=== PATIENT | female | born 1965 | race Caucasian/White ===

== ENCOUNTER 2019-05-17 15:42 | Inpatient (IN) | payer MEDICAID ==
[~2019-05-17] VITALS: Ht 152.4 cm; Wt 59.4 kg
--- NOTE | 2019-05-17 15:53 | NUR ---
PT AMBULATED TO ER BED 06
[2019-05-17 15:55] VITALS: BP 173/103
--- NOTE | 2019-05-17 16:05 | NUR ---
PT C/O N/V/D SINCE YESTERDAY WITH CHILLS. PT STATES SHE IS UNABLE TO KEEP ANYTHING DOWN WITHOUT VOMITING. ALSO REPORTS HAVING EPIGASTRIC PAIN 8/10 THROBBING AT THIS TIME. VSS; PATIENT POSITIONED FOR COMFORT; HOB ELEVATED; BEDRAILS UP X1; BED DOWN. ER MD MADE AWARE OF PT STATUS. DAUGHTER IS AT BEDSIDE.
--- NOTE | 2019-05-17 16:48 | NUR ---
Dr. La is evaluating the patient at bedside.
[2019-05-17] MEDS ORDERED: NACL 0.9% 1,000 ML IV ONE (17:00)
[2019-05-17] MEDS ORDERED: KETOROLAC 15 MG/ML VIAL IVP ONE (17:00)
[2019-05-17] MEDS ORDERED: ONDANSETRON 4 MG/2 ML VIAL IVP ONE (17:00)
[2019-05-17] MEDS ORDERED: DICYCLOMINE HCL LIQUID 20 MG, ALUMINUM HYD/MAG/SIMETHICONE 30 ML, LIDOCAINE VISCOUS 2% ... PO ONE ×3 (17:00)
[2019-05-17 17:11] LABS: BASOPHILS % (AUTO) 0.3 % (0.0-2.0); EOSINOPHILS % (AUTO) 0.1 % (0.0-4.0); HEMATOCRIT 47.6 % (36-48); HEMOGLOBIN 15.6 g/dL (12.0-16.0); LYMPHOCYTES # (AUTO) 1.2 K/uL (2.5-16.5); LYMPHOCYTES % (AUTO) 7.8 % (20.5-51.1); MEAN CORPUSCULAR HEMOGLOBIN 30 pg (27-31); MEAN CORPUSCULAR HGB CONC 33 g/dL (33-37); MONOCYTES # (AUTO) 1.3 K/uL (0.8-1.0); MONOCYTES % (AUTO) 8.1 % (1.7-9.3); NEUTROPHILS # (AUTO) 12.9 K/uL (1.8-7.7); NEUTROPHILS % (AUTO) 83.7 % (42.2-75.2); PLATELET COUNT (AUTO) 130 K/uL (140-450); RED BLOOD CELL COUNT(AUTO) 5.23 MIL/uL (4.20-5.40); WHITE BLOOD COUNT (AUTO) 15.4 K/uL (4.8-10.8)
[2019-05-17 17:17] LABS: APPEARANCE,URINE CLEAR (CLEAR); BILIRUBIN,URINE NEGATIVE (NEGATIVE); BLOOD, URINE 1+ (NEGATIVE); COLOR,URINE YELLOW (YELLOW); LEUKOCYTE ESTERASE ,URINE NEGATIVE (NEGATIVE); NITRITE, URINE NEGATIVE (NEGATIVE); UGLUCOSE NEGATIVE (NEGATIVE)
[2019-05-17 17:42] LABS: RBC,URINE 0-5 /HPF (0-5)
[2019-05-17 17:43] LABS: WBC,URINE 0-5 /HPF (0-5)
[2019-05-17 17:54] LABS: ANION GAP 10.5 (8-16); CARBON DIOXIDE 31.9 mmol/L (21-32); CREATININE 0.9 mg/dL (0.6-1.3); POTASSIUM 4.4 mmol/L (3.5-5.1)
[2019-05-17 17:55] LABS: ALBUMIN 3.5 g/dL (3.4-5.0); TOTAL BILIRUBIN 1.4 mg/dL (0.0-1.0)
[2019-05-17] MEDS ORDERED: cefTRIAXone 1,000 MG VIAL ONE (18:22)
[2019-05-17] MEDS ORDERED: HYDROcodone/APAP 7.5/325 MG 1 TAB PO PRN (18:35)
[2019-05-17] MEDS ORDERED: MORPHINE SULFATE 2 MG/ML SYR IVP PRN (18:35)
[2019-05-17] MEDS ORDERED: NACL 0.9% 1,000 ML IV SCH (18:35)
[2019-05-17] MEDS ORDERED: ONDANSETRON 4 MG/2 ML VIAL IM/IVP PRN (18:35)
[2019-05-17] MEDS ORDERED: ACETAMINOPHEN 325 MG TAB PO PRN (18:35)
[2019-05-17] MEDS ORDERED: MORPHINE SULFATE 4 MG/ML SYR IVP ONE (18:40)
--- NOTE | 2019-05-17 18:42 | NUR ---
Dr. العلي evaluating patient at bedside.
--- NOTE | 2019-05-17 18:49 | NUR ---
Dr. La is re-evaluating the patient at bedside.
[2019-05-17] MEDS ORDERED: hydrALAZINE 20 MG/ML VIAL IVP SCH (18:50)
--- NOTE | 2019-05-17 18:50 | NUR ---
PT'S BP IS 189/99MMHG. DR. SÁNCHEZ NOTIFIED.
--- NOTE | 2019-05-17 18:54 | NUR ---
Dr. Platt evaluating patient at bedside.
--- NOTE | 2019-05-17 18:58 | NUR ---
DANIEL GARSIA FROM OR AT BEDSIDE TO TAKE PATIENT DIRECTLY TO SURGERY. PT WILL GO TO M/S AFTER SURGERY.
[2019-05-17] MEDS ORDERED: KETOROLAC 15 MG/ML VIAL IVP PRN (19:20)
--- NOTE | 2019-05-17 19:20 | NUR ---
Pt report given to ADY Rosado from OR. Transfer of care at this time. Pt is taking to the OR for surgery.
[2019-05-17 19:22] LABS: BARBITURATE, URINE NEGATIVE ng/ml (NEG <=200); BENZODIAZEPINE, URINE NEGATIVE ng/mL (NEG <=200); CANNABINOID, URINE NEGATIVE ng/mL (NEG <=50); COCAINE, URINE NEGATIVE ng/mL (NEG <=300); OPIATE, URINE NEGATIVE ng/mL (NEG <=2000); PHENCYCLIDINE SCREEN,URINE NEGATIVE ng/mL (NEG <=25)
--- NOTE | 2019-05-17 19:24 | NUR ---
PATIENT TAKEN TO OR.
[2019-05-17] MEDS ORDERED: LABETALOL 100 MG/20 ML VIAL ONE (19:25)
[2019-05-17] MEDS ORDERED: ROCURONIUM 50 MG/5 ML VIAL IV ONE (19:25)
[2019-05-17] MEDS ORDERED: ONDANSETRON 4 MG/2 ML VIAL ONE (19:25)
[2019-05-17] MEDS ORDERED: SUCCINYLCHOLINE CHLORIDE 200 MG/10 ML VIAL IVP ONE (19:25)
[2019-05-17] MEDS ORDERED: NEOSTIGMINE 1:1000 10 MG/10 ML VIAL ONE (19:25)
[2019-05-17] MEDS ORDERED: GLYCOPYRROLATE 0.2 MG/ML VIAL ONE (19:25)
[2019-05-17] MEDS ORDERED: DEXAMETHASONE 4 MG/ML VIAL ONE (19:25)
[2019-05-17] MEDS ORDERED: DESFLURANE 240 ML BTL INH ONE (19:25)
[2019-05-17] MEDS ORDERED: KETOROLAC 30 MG/ML VIAL ONE (19:25)
[2019-05-17] MEDS ORDERED: PROPOFOL 200 MG/20 ML VIAL IV ONE (19:25)
[2019-05-17] MEDS ORDERED: fentaNYL 0.05 MG/ML VIAL ONE (19:27)
[2019-05-17] MEDS ORDERED: HYDROmorphone PFS 2 MG/ML SYR ONE (19:27)
[2019-05-17] MEDS ORDERED: BUPIVACAINE-MPF 0.25% 30 ML VIAL INJ ONE (19:29)
[2019-05-17] MEDS ORDERED: ONDANSETRON 4 MG/2 ML VIAL IVP PRN (19:30)
[2019-05-17] MEDS ORDERED: HYDROmorphone 1 MG/ML AMP IVP PRN (19:30)
[2019-05-17 19:33] LABS: CHOL/HDL RATIO 5.2 (1-4.5); MAGNESIUM 1.7 mg/dL (1.8-2.4); PHOSPHORUS 2.8 mg/dL (2.5-4.9)
[2019-05-17 19:34] LABS: FREE T4 (FREE THYROXINE) 0.95 ng/dL (0.76-1.46); THYROID STIMULATING HORMONE 2.1 uIU/mL (0.34-3.74)
[2019-05-17] MEDS ORDERED: LABETALOL 100 MG/20 ML VIAL IVP PRN (20:35)
[2019-05-17 21:10] VITALS: BP 130/72
--- NOTE | 2019-05-17 21:10 | NUR ---
RECIEVED PT , FROM OR - S/P LAP. AP / THOMAS , FULLY AWAKE - AAOX4 , NID - 02 SAT 94% , WITH BEARABLE PAIN SHE SAID ,WITH SURICAL WOUND INTACT - NO ACTIVE BLEEDING NOTED AT THIS TIME . PER OR NOD PT HAD EPISODE OF INCREASED BP AT OR - LABETALOL GIVEN AT THE OR - FOR CLOSELY WATCH -BP WNL AT THIS TIME. TRANSFER TO BED BY 4 PEOPLE MANUALLY LIFT , KEEP PT. WARM , MAIINTAIN NPO TILL FURTHER ORDER INSTRUCTED . HOOK ON V/S MACHINE - WNL - ON SAFETY PRECAUTION PROTOCOL - CALL LIGHT WITHIN REACH - REMINDS HER THE USE OF CALL LIGHT WHEN SHE NEEDED ASSISTANCE OR HELP . PLAN OF CARE DISCUSSED - PT IS GERMAN SPEAKING BUT CAN ABLE TO UNDERSTAND SOME URUGUAYAN , RELATIVES ARE AT BEDSIDE . WILL CONT. TO MONITOR.
[2019-05-17] MEDS: DEXT 5% /NACL 0.9% 1,000 ML IV SCH (21:41)
--- NOTE | 2019-05-17 22:10 | NUR ---
MADE ROUNDS , BP 133/90 , O2 SAT 94 % , NO SIGNS OF DISTRESS NOTED AT THIS TIME - CALL LIGHT WITHIN REACH - WILL CONT. TO MONITOR.
[2019-05-18] VITALS: BP 140/90
--- NOTE | 2019-05-18 | NUR ---
MADE ROUNDS PAIN C/O OF PAIN , SHE REQUESTING NO MORPHINE OR ANY MEDICINE CONTAINS OF MORPHINE , NO TYLENOL , NO CODEINE OR ANY MEDICINE CONTAINS OF THIS INGREDIENTS. WILL REFER TO GEETHA. WILL CONT. TO MONITOR. CALL LIGHT WITHIN REACH.
--- NOTE | 2019-05-18 00:30 | NUR ---
REFERED TO GEETHA - GEETHA INFORMED ABOUT THE PT'S REQUEST ABOUT MEDICINE (NO MORPHINE , NO TYLENOL , NO CODEINE ).GEETHA WILL REVISE THE ORDER ABOUT PAIN MEDICATION.
[2019-05-18] MEDS ORDERED: KETOROLAC 15 MG/ML VIAL IVP ONE (00:40)
--- NOTE | 2019-05-18 00:43 | NUR ---
BP 145/90 . 02 SAT 95% ,CA 75 BY V/S MACHINE - TORADOL TIV GIVEN ORDERED - WILL CONT. TO MONITOPR. CALL LIGHT WITHIN REACH.
--- NOTE | 2019-05-18 02:43 | NUR ---
MADE ROUNDS , BP 140/93 , DE 74 , 02 SAT 97% - NO COMPLAIN MADE AT THIS TIME . WILL CONT. TO MONITOR.
[2019-05-18 04:00] VITALS: BP 140/90
--- NOTE | 2019-05-18 04:33 | NUR ---
MADE ROUNDS . NO SIGNS OF DISTRESS NOTED AT THIS TIME , ON O2 SAT. MONITOR 94% - SLEEPING COMFORTABLY. WILL CONT. TO MONITOR.
--- NOTE | 2019-05-18 06:00 | NUR ---
OFFER A BED TOLENTINO - PT. SAID SHE FEELS URGE TO VOID.
[2019-05-18] MEDS ORDERED: hydrALAZINE 20 MG/ML VIAL ONE (06:19)
[2019-05-18] MEDS: hydrALAZINE 20 MG/ML VIAL IVP PRN (06:29)
[2019-05-18 06:48] LABS: BASOPHILS % (AUTO) 0.2 % (0.0-2.0); HEMATOCRIT 38.9 % (36-48); HEMOGLOBIN 12.8 g/dL (12.0-16.0); LYMPHOCYTES % (AUTO) 8.6 % (20.5-51.1); MEAN CORPUSCULAR HEMOGLOBIN 30 pg (27-31); MEAN CORPUSCULAR HGB CONC 33 g/dL (33-37); MEAN CORPUSCULAR VOLUME 91.7 fL (80-94); MONOCYTES # (AUTO) 0.7 K/uL (0.8-1.0); MONOCYTES % (AUTO) 6.1 % (1.7-9.3); NEUTROPHILS # (AUTO) 9.7 K/uL (1.8-7.7); NEUTROPHILS % (AUTO) 85.1 % (42.2-75.2); PLATELET COUNT (AUTO) 118 K/uL (140-450); RED BLOOD CELL COUNT(AUTO) 4.24 MIL/uL (4.20-5.40); RED CELL DISTRIBUTION WIDTH 13.1 % (11.6-13.7); WHITE BLOOD COUNT (AUTO) 11.4 K/uL (4.8-10.8)
--- NOTE | 2019-05-18 07:17 | NUR ---
ENDORSE TO AM SHIFT . STILL NO U.O . CLEAR LIQ. TO BE STARTED .
[2019-05-18 07:27] LABS: ANION GAP 11.5 (8-16); CARBON DIOXIDE 29.8 mmol/L (21-32); CREATININE 0.8 mg/dL (0.6-1.3); POTASSIUM 4.3 mmol/L (3.5-5.1)
--- NOTE | 2019-05-18 07:30 | NUR ---
Recieved report from manager shift nurse. Pt is in bed resting. No signs of distress. Call light in reach [id number]
[2019-05-18 08:00] VITALS: BP 154/79
[2019-05-18 08:58] LABS: CHOL/HDL RATIO 4.4 (1-4.5); MAGNESIUM 1.7 mg/dL (1.8-2.4)
[2019-05-18] MEDS ORDERED: MAGNESIUM OXIDE 400 MG TAB PO SCH (09:00)
--- NOTE | 2019-05-18 09:00 | NUR ---
PATIENT HAS BEEN SCREENED AND CATEGORIZED HIGH NUTRITION RISK. PATIENT WILL BE SEEN WITHIN 1-2 DAYS OF ADMISSION. 05/19/19 05/20/[address]
[2019-05-18] MEDS: LACTOBACILLUS RHAMNOSUS GG 1 EACH CAP PO SCH (09:15)
[2019-05-18] MEDS: KETOROLAC 15 MG/ML VIAL IVP PRN ×3 (09:21→21:06)
[2019-05-18] MEDS: DEXT 5% /NACL 0.9% 1,000 ML IV SCH (09:38)
--- NOTE | 2019-05-18 10:00 | NUR ---
Pt is in bedside. No complains of pain at this time. Family by bedside. Call light in reach. [id number]
[2019-05-18 12:00] VITALS: BP 161/86
--- NOTE | 2019-05-18 13:48 | NUR ---
05/18/19 RD INITIAL ASSESSMENT COMPLETED PLEASE REFER TO NUTRITION ASSESSMENT UNDER CARE ACTIVITY FOR ESTIMATED NUTRITIONAL NEEDS. 1. CONTINUE CLEAR LIQUID DIET TOLERATED 2. IF/WHEN MEDICALLY STABLE TO BEGIN NUTRITION, ADVANCE DIET TOLERATED TO REGULAR 3. RD TO FOLLOW-UP 2-3 DAYS, HIGH RISK ANGUS DURHAM, JEWEL
--- NOTE | 2019-05-18 13:59 | NUR ---
Pt is in bedside. No complains of pain at this time. Family by bedside. Call light in reach. [id number]
[2019-05-18] MEDS ORDERED: ACETAMINOPHEN 650 MG/20.3 ML UDC PO SCH (15:00)
[2019-05-18] MEDS ORDERED: SIMETHICONE 80 MG TAB.CHEW PO SCH (15:00)
--- NOTE | 2019-05-18 15:45 | NUR ---
Pt ambulated along the hallway with assistance. Pt complained of pain but tolerated well during ambulation.
[2019-05-18 16:00] VITALS: BP 150/81
--- NOTE | 2019-05-18 18:37 | NUR ---
RECEIVED REPORT FROM RN WILL ASSUME CONTINUITY OF CARE OF PATIENT FOR NOW
--- NOTE | 2019-05-18 19:19 | NUR ---
ENDORSED PT TO PM RN PT AWAKE IN BED WITH FAMILY AT BEDSIDE. PT APPEARS STABLE AND IN NO APPARENT DISTRESS. ALL SAFETY MEASURES ARE IN PLACE WILL CONTINUE TO MONITOR
--- NOTE | 2019-05-18 19:19 | NUR ---
RECIEVED PT. AAOX4 . NID , WITH BEARABLE WILLIE AT THIS TIME SHE SAID , IV SITE INTACT AND PATENT , WITH 3 SURGICAL WOUNDS ON ADB - S/P LAP AP - NO ACTIVE BLEEDING ON SURICAL SITES NOTED AT THIS TIME. ON REG. DIET , PT . STILL NO BM , AMBULATORY , GOOD U.O . ON SAFETY PRECAUTION PROTOCOL -REMINDS HER THE USE OF CALL LIGHT WHWN SHE NEEDED HELP / ASSISTANCE , PLAN OF CARE DISCUSSED AND VERBALIZE UNDERSTANDING - CALL LIGHT WITHIN REACH . WILL CONT. TO MONITOR.
[2019-05-18 20:00] VITALS: BP 140/90
--- NOTE | 2019-05-18 22:00 | NUR ---
MADE ROUNDS . PT WITH BERABLE PAIN SHE SAID AT THIS TIME . NO SIGNS OF DISTRESS NOTED AT THIS TIME.
[2019-05-19] VITALS: BP 169/90
[2019-05-19] MEDS: hydrALAZINE 20 MG/ML VIAL IVP PRN ×3 (00:36→16:08)
--- NOTE | 2019-05-19 00:36 | NUR ---
BP RE CHECKED 160/95 - TIV APRESOLINE GIVEN. WILL CONTINUE TO MONITOR. NO FURTHER COMPLAIN MADE AT THIS TIME. CALL LIGHT WITHIN REACH.
[2019-05-19] MEDS: DEXT 5% /NACL 0.9% 1,000 ML IV SCH ×2 (00:39→15:02)
[2019-05-19 04:30] VITALS: BP 140/92
--- NOTE | 2019-05-19 04:30 | NUR ---
MADE ROUNDS . BP RE CHECKED 140/92mmhg- WILL CONTINUE TO MONITOR.
[2019-05-19 07:13] LABS: ANION GAP 11.5 (8-16); CREATININE 0.6 mg/dL (0.6-1.3); POTASSIUM 3.5 mmol/L (3.5-5.1)
--- NOTE | 2019-05-19 07:15 | NUR ---
ENDORSED TO AM SHIFT WITH LATEST BP 140/92 MMHG , WITH BEARABLE PAIN ON SURGICAL SITES.
--- NOTE | 2019-05-19 07:15 | NUR ---
RECEIVED BEDSIDE REPORT FROM PATIENT SUPPORT PARTNER NURSE, PT IS AWAKE IN BED, NO S/S OF ACUTE DISTRESS, NO C/O PAIN. ABD DRESSINGS ARE DRY AND INTACT S/P LAP APPY. IV SITE ON THE L AC 20 G, INFUSING D5NS 70 ML/HR. PT IS AMBULATORY AND ABLE TO MAKE NEEDS KNOWN. CALL LIGHT IS WITHIN REACH. WILL CONTINUE TO MONITOR.
[2019-05-19 07:41] LABS: BASOPHILS # (AUTO) 0.1 K/uL (0.00-0.22); BASOPHILS % (AUTO) 0.5 % (0.0-2.0); EOSINOPHILS % (AUTO) 0.4 % (0.0-4.0); HEMATOCRIT 36.3 % (36-48); HEMOGLOBIN 11.8 g/dL (12.0-16.0); LYMPHOCYTES # (AUTO) 1.8 K/uL (2.5-16.5); LYMPHOCYTES % (AUTO) 15.6 % (20.5-51.1); MEAN CORPUSCULAR HEMOGLOBIN 30 pg (27-31); MEAN CORPUSCULAR HGB CONC 33 g/dL (33-37); MEAN CORPUSCULAR VOLUME 91.9 fL (80-94); MONOCYTES # (AUTO) 1.2 K/uL (0.8-1.0); MONOCYTES % (AUTO) 10.9 % (1.7-9.3); NEUTROPHILS # (AUTO) 8.2 K/uL (1.8-7.7); NEUTROPHILS % (AUTO) 72.6 % (42.2-75.2); PLATELET COUNT (AUTO) 91 K/uL (140-450); RED BLOOD CELL COUNT(AUTO) 3.95 MIL/uL (4.20-5.40); WHITE BLOOD COUNT (AUTO) 11.3 K/uL (4.8-10.8)
[2019-05-19 08:00] VITALS: BP 180/93
[2019-05-19] MEDS: LACTOBACILLUS RHAMNOSUS GG 1 EACH CAP PO SCH (09:00)
--- NOTE | 2019-05-19 09:09 | NUR ---
AM MEDS ADMINISTERED, PT TOLERATED WELL. ADMINISTERED 10 MG HYDRALAZINE PRN FOR BP 180/93. WILL REASSESS BP WITHIN AN HOUR. DR GREGG IS AWARE OF PT'S ELEVATED BP. PT IS C/O A HEADACHE AND SOME ABD PAIN. WILL MEDICATE PT FOR PAIN.
[2019-05-19] MEDS: KETOROLAC 15 MG/ML VIAL IVP PRN ×2 (09:28→17:17)
--- NOTE | 2019-05-19 10:40 | NUR ---
RECHECKED PT'S BP, 181/[address] GREGG NOTIFIED.
[2019-05-19] MEDS ORDERED: METOPROLOL 25 MG TAB PO SCH (10:50)
--- NOTE | 2019-05-19 14:03 | NUR ---
BP AT THIS TIME 177/91. PT STATES THAT HER HEADACHE IS "A LITTLE BETTER". WILL CONTINUE TO MONITOR.
[2019-05-19 16:00] VITALS: BP 195/104
--- NOTE | 2019-05-19 16:10 | NUR ---
BP IS 193/104 AT THIS TIME. ADMINISTERED IV HYDRALAZINE PRN, WILL RECHECK PT'S BP WITHIN AN HOUR. WILL NOTIFY . Addendum: 05/19/19 at 1629 by Bertha Melendez RN DR GREGG AWARE OF ELEVATED BP, WILL PUT IN MED ORDERS.
[2019-05-19] MEDS ORDERED: METOPROLOL 25 MG TAB PO ONE (16:25)
--- NOTE | 2019-05-19 16:30 | NUR ---
PHARMACY CLOSED, CANNOT VERIFY THE ONE-TIME ORDER OF METOPROLOL 25 MG FOR RIGHT NOW. I CALLED THE AFTER-HOURS PHARM[facility], NO ANSWER. CALLED [facility] TO TRY TO OVERRIDE THE MED. Addendum: 05/19/19 at 1824 by Bertha Melendez RN ADMINISTERED AN OVERRIDE DOSE OF METOPROLOL 25 MG AT 17:06, WILL REASSESS BP WITHIN AN HOUR.
[2019-05-19] MEDS ORDERED: METOPROLOL 25 MG TAB ONE (17:05)
--- NOTE | 2019-05-19 17:32 | NUR ---
PT C/O A STRONG HEADACHE AGAIN. IV TORADOL ADMINISTERED. DR GREGG AWARE OF PT'S HEADACHES.
--- NOTE | 2019-05-19 17:36 | NUR ---
PT REPORTED TO ME THAT AFTER SHE GOT ROCEPHIN LAST NIGHT, SHE BECAME DIAPHORETIC, ANXIOUS, AND FELT LIKE HER THROAT WAS "CLOSING UP", ALTHOUGH SHE WAS STILL ABLE TO BREATHE. SHE ALSO SAID THAT SHE HAS BEEN HAVING A HEADACHE SINCE GETTING THE ROCEPHIN LAST NIGHT. SHE SAID THAT SHE DID NOT NOTIFY ANYONE OF THESE SYMPTOMS. I NOTIFIED DR GREGG, SHE DC'D THE ROCEPHIN AND WILL ORDER A DIFFERENT CLASS OF IV ABX.
--- NOTE | 2019-05-19 18:33 | NUR ---
PT'S BP STILL ELEVATED AT 181/98 AT THIS TIME. PT IS EATING DINNER AND VISITING WITH HER DAUGHTER AT THIS TIME. NO S/S OF ACUTE DISTRESS. REPORTS HEADACHE A LITTLE BIT BETTER. Addendum: 05/19/19 at 1858 by Bertha Melendez RN DR ZAVALETA IS AWARE OF PT'S HIGH BP. HE WENT TO TALK TO THE PATIENT ABOUT HER HEADACHES AND HER ELEVATED BP, AND HE WILL ORDER A NEW BP MEDICATION AND MUSCLE RELAXANT.
[2019-05-19] MEDS ORDERED: CYCLOBENZAPRINE 10 MG TAB PO PRN (19:00)
[2019-05-19] MEDS ORDERED: ENALAPRILAT 2.5 MG/2 ML VIAL IVP PRN (19:00)
--- NOTE | 2019-05-19 19:20 | NUR ---
ENDORSED PT TO COMPLAINT SUPERVISOR CHARGE NURSE IN STABLE CONDITION
--- NOTE | 2019-05-19 19:22 | NUR ---
ADMINISTERED THE PRN VASOTEC IVP AND PRN FLEXERIL PO, PER DR. ZAVALETA. WILL ENDORSE TO COOK HELPER VEGETABLE NURSE TO REASSESS BP AND HEADACHE.
[2019-05-19] MEDS ORDERED: AMPICILLIN/SULBACTAM 3 GM VIAL ONE (22:02)
[2019-05-19] MEDS: METOPROLOL 25 MG TAB PO SCH (22:43)
[2019-05-19] MEDS: AMPICILLIN/SULBACTAM 3 GM in NACL 0.9% 100 ML IV SCH (23:12)
[2019-05-20] MEDS: KETOROLAC 15 MG/ML VIAL IVP PRN ×3 (01:28→09:18)
[2019-05-20] MEDS: cloNIDine 0.1 MG TAB PO PRN ×4 (01:32→01:45)
[2019-05-20] MEDS ORDERED: AMPICILLIN/SULBACTAM 3 GM VIAL ONE (06:13)
[2019-05-20] MEDS: AMPICILLIN/SULBACTAM 3 GM in NACL 0.9% 100 ML IV SCH ×2 (06:43→12:59)
--- NOTE | 2019-05-20 07:12 | NUR ---
RECEIVED BEDSIDE REPORT FROM SUPERVISOR TYPE BAR AND SEGMENT NURSE. PT IS AWAKE AND ALERT IN BED, NO S/S OF ACUTE DISTRESS, DAUGHTER IS AT BEDSIDE. PT ON ROOM AIR, ABD BANDAGES ARE DRY AND INTACT. IV SITE INTACT L AC 20 G, SALINE LOCKED. CALL LIGHT IS WITHIN REACH.
[2019-05-20 08:00] VITALS: BP 178/96
[2019-05-20] MEDS ORDERED: FUROSEMIDE 20 MG/2 ML VIAL IVP SCH (08:22)
[2019-05-20] MEDS ORDERED: LISINOPRIL 10 MG TAB PO SCH (09:00)
[2019-05-20] MEDS: LACTOBACILLUS RHAMNOSUS GG 1 EACH CAP PO SCH (09:16)
[2019-05-20] MEDS: METOPROLOL 25 MG TAB PO SCH (09:17)
--- NOTE | 2019-05-20 09:25 | NUR ---
ADMINISTERED AM MEDS, PT TOLERATED WELL. TWO VISITORS ARE AT BEDSIDE. PT IS STILL C/O HEADACHE, ADMINISTERED PRN IV TORADOL. WILL REASSESS WITHIN THE HOUR.
--- NOTE | 2019-05-20 10:34 | NUR ---
RECHECKED PT'S BP, CHECKED TWICE: 190/110, AND 183/109. DR GREGG IS AWARE OF THIS AND WILL PLACE AN ORDER FOR A DIFFERENT BP MED. WILL CONTINUE TO MONITOR PT.
[2019-05-20] MEDS ORDERED: cloNIDine 0.1 MG TAB PO SCH (11:22)
--- NOTE | 2019-05-20 11:47 | NUR ---
ADMINISTERED ONE-TIME ORDERED DOSE OF CLONIDINE FOR ELEVATED BP. WILL REASSESS BP IN AN HOUR. PT IS IN NO ACUTE DISTRESS VISITING WITH RELATIVES.
[2019-05-20] MEDS ORDERED: LISI10TA11 PO (13:00)
[2019-05-20] MEDS ORDERED: METO25TA PO (13:00)
[2019-05-20 13:05] VITALS: BP 155/90
--- NOTE | 2019-05-20 13:06 | NUR ---
RECHECKED PT'S BP, AT THIS TIME 155/90.
--- NOTE | 2019-05-20 15:30 | NUR ---
AT THIS TIME BP IS 144/59
--- NOTE | 2019-05-20 16:00 | NUR ---
PT HAS DC'D. PT AND HER DAUGHTER WERE GIVEN DC INSTRUCTIONS AND DC PRESCRIPTION. THEY VERBALIZED UNDERSTANDING OF THE DC INSTRUCTIONS, INCLUDING MD FOLLOW UPS. IV AND WRIST BANDS REMOVED. PT DECLINED THE FLU VACCINE. PT LEFT WITH ALL HER BELONGINGS IN STABLE CONDITION.
== END 2019-05-20 16:00 | disposition home or self-care (01) | DRG 234 ==
LOC: MED 15:42 → MTU 18:35
PROVIDERS: ADMIT General Practice; ATTEND General Practice
PROC: 0DTJ4ZZ Resection of Appendix, Percutaneous Endoscopic Approach (ICD-10-PCS; principal; 2019-05-17 19:00)
DX: K35.80 Unspecified acute appendicitis (principal); D69.6 Thrombocytopenia, unspecified; E83.42 Hypomagnesemia; I16.0 Hypertensive urgency; Z90.49 Acquired absence of other specified parts of digestive tract
CPT/HCPCS: 36415; 71045; 76700; 80048; 80053; 80305; 81001; 81025; 82150; 82247; 83036; 83605; 83690; 83735; 83880; 84100; 84439; 84443; 85025; 87040; 87081; 88304; 93005; 96361; 96365; 96375; 99285; J0295; J0330; J0360; J0696; J1100; J1170; J1885; J1940; J2270; J2405; J2704; J2710; J3010; J3490; J7030; J7042; J7060; Q0092

== ENCOUNTER 2021-06-26 15:00 | Emergency (ER) | payer MEDICAID ==
[~2021-06-26] VITALS: Ht 152.4 cm; Wt 60.3 kg
[~2021-06-26 15:00] MED LIST: LISI10TA30 PO; METO25TA PO
--- NOTE | 2021-06-26 15:04 | NUR ---
PT W/C ASSISTED TO BED 4.
[2021-06-26 15:15] VITALS: BP 222/117
[2021-06-26] MEDS ORDERED: NACL 0.9% 1,000 ML IV SCH (15:40)
[2021-06-26] MEDS ORDERED: ONDANSETRON 4 MG/2 ML VIAL IVP ONE ×2 (15:40→16:05)
--- NOTE | 2021-06-26 15:45 | NUR ---
DR VENTURA AT BEDSIDE EXAMINING PT
[2021-06-26 15:48] LABS: BASOPHILS # (AUTO) 0.1 K/uL (0.00-0.22); BASOPHILS % (AUTO) 0.8 % (0.0-2.0); EOSINOPHILS # (AUTO) 0.2 K/uL (0-0.4); EOSINOPHILS % (AUTO) 1.7 % (0.0-4.0); HEMATOCRIT 41.1 % (36-48); HEMOGLOBIN 13.7 g/dL (12.0-16.0); LYMPHOCYTES # (AUTO) 4.2 K/uL (2.5-16.5); LYMPHOCYTES % (AUTO) 31.9 % (20.5-51.1); MEAN CORPUSCULAR HEMOGLOBIN 29 pg (27-31); MEAN CORPUSCULAR HGB CONC 33 g/dL (33-37); MEAN CORPUSCULAR VOLUME 86.3 fL (80-94); MONOCYTES # (AUTO) 1.2 K/uL (0.8-1.0); NEUTROPHILS # (AUTO) 7.5 K/uL (1.8-7.7); NEUTROPHILS % (AUTO) 56.6 % (42.2-75.2); PLATELET COUNT (AUTO) 145 K/uL (140-450); RED BLOOD CELL COUNT(AUTO) 4.76 MIL/uL (4.20-5.40); RED CELL DISTRIBUTION WIDTH 13.1 % (11.6-13.7); WHITE BLOOD COUNT (AUTO) 13.2 K/uL (4.8-10.8)
--- NOTE | 2021-06-26 16:06 | NUR ---
55 Y/O FEMALE BIB W/C FOR WEAKNESS XTODAY. A&OX4. PT STATED SHE ATE A HOT DOG TODAY AND STARTED VOMITING AND FELL. DENIES LOC. DENIES ANY BLOOD IN HER VOMIT. REPORTS NO FEVER, OR SOB. PT DENIES ANY PAIN MEDHX: APPENDICITIS NKA
--- NOTE | 2021-06-26 16:06 | NUR ---
PT TAKEN VIA GURNEY TO CT SCAN
[2021-06-26 16:07] LABS: ANION GAP 14.2 (8-16); CARBON DIOXIDE 31.2 mmol/L (21-32); CREATININE 0.9 mg/dL (0.6-1.3); TOTAL BILIRUBIN 0.9 mg/dL (0.0-1.0)
[2021-06-26 16:11] LABS: POTASSIUM 2.4 mmol/L (3.5-5.1)
--- NOTE | 2021-06-26 16:15 | NUR ---
Noel hoskins in ED - 06/26/21 at 1620 by [email or web address] PT RETURNED FROM CT
--- NOTE | 2021-06-26 16:22 | NUR ---
PT RETURNED FROM CT
[2021-06-26] MEDS ORDERED: POTASSIUM CHLORIDE 10 MEQ TABER PO ONE (16:30)
[2021-06-26] MEDS ORDERED: LABETALOL 250 MG in DEXTROSE 5% 200 ML IV SCH (16:40)
[2021-06-26] MEDS ORDERED: LABETALOL 100 MG/20 ML VIAL IVP ONE ×2 (16:40→17:40)
--- NOTE | 2021-06-26 17:17 | NUR ---
Patient to be transferred to [facility]. Is being transferred due to HIGHER LEVEL OF CARE. Receiving facility has accepting physician and available space. ER physician has signed transfer form. Patient or responsible democrat has agreed to transfer and signed form. Patient belongings inventoried and will be sent with patient. Copy of nursing notes, lab reports, EKG, Physicians Orders and X-rays to be sent with patient. Report called to AN GARSIA at receiving facility. [facility] ambulance service has been called for transfer. ETA is 30 MIN.
--- NOTE | 2021-06-26 18:04 | NUR ---
CONTACTED FAMILY, MEEK. UPDATED ON PT STATUS. REQUESTED [facility] NEXT OF KIN.
[2021-06-26 18:05] VITALS: BP 170/96
--- NOTE | 2021-06-26 18:05 | NUR ---
[facility] TRANSPORT AT BEDSIDE
== END 2021-06-26 18:05 | disposition short-term general hospital (02) ==
LOC: MED 15:00
DX: I61.8 Other nontraumatic intracerebral hemorrhage (principal); R11.2 Nausea with vomiting, unspecified; R51.9 Headache, unspecified; R53.1 Weakness; Z90.49 Acquired absence of other specified parts of digestive tract; Z79.899 Other long term (current) drug therapy; I10 Essential (primary) hypertension
CPT/HCPCS: 36415; 70450; 80053; 83690; 85025; 96361; 96365; 96375; 96376; 99284; J2405; J3490; J7060; J7030

== ENCOUNTER 2023-10-22 20:14 | Emergency (ER) | payer MEDICAID ==
[~2023-10-22] VITALS: Ht 154.9 cm; Wt 59.0 kg
[2023-10-22 20:40] VITALS: BP 137/78; PULSE 78; RESP 17; TEMP 98.4; O2SAT 99
[2023-10-22] MEDS ORDERED: AMOX1TAB8 PO (21:28)
[2023-10-22] MEDS ORDERED: ACET-9882 PO (21:28)
[2023-10-22] MEDS ORDERED: BACTO TP (21:28)
[2023-10-22] MEDS: BACITRACIN OINT 500 UNITS/GM PKT TP ONE (21:32)
[2023-10-22] MEDS ORDERED: IBUPROFEN 600 MG TAB PO ONE (21:35)
[2023-10-22] MEDS: ACETAMINOPHEN EXTRA STRENGTH 500 MG TAB PO ONE (21:40)
== END 2023-10-22 21:41 | disposition home or self-care (01) ==
LOC: MED 20:14
DX: S80.812A Abrasion, left lower leg, initial encounter (principal); Z79.899 Other long term (current) drug therapy; W54.0XXA Bitten by dog, initial encounter; Y93.89 Activity, other specified; Y92.89 Other specified places as the place of occurrence of the external cause; Y99.8 Other external cause status
CPT/HCPCS: 90471; 90715; 99283